=== PATIENT | male | born 1940 | race Hispanic/Latino ===

== ENCOUNTER 2019-01-09 10:48 | Emergency (ER) | payer MEDICARE, MEDICAID ==
[~2019-01-09] VITALS: Ht 172.7 cm; Wt 90.7 kg
[2019-01-09] MEDS ORDERED: GLUCOPHAGE500 MG PO (11:07)
[2019-01-09] MEDS ORDERED: PANTOPRAZOLE SO40 MG PO (12:40)
[2019-01-09] MEDS ORDERED: ZOFRAN4 MG SL (12:40)
[2019-01-09] MEDS ORDERED: DICYCLOMINE HCL20 MG PO (12:40)
== END 2019-01-09 12:49 | disposition home or self-care (01) ==
LOC: ED 10:48
DX: A08.4 Viral intestinal infection, unspecified (principal)
CPT/HCPCS: 36415; 76705; 80053; 81001; 83690; 85025; 85610; 86850; 86900; 86901; 96374; 99284-25; C9113